=== PATIENT | male | born 1990 | race American Indian/Alaskan Native ===

== ENCOUNTER 2020-11-03 16:41 | Emergency (ER) | payer MEDICAID ==
--- NOTE | 2020-11-03 17:49 | Event Note ---
ED Screening Note Date of service: 11/03/20 Time: 16:50 ED Screening Note: 28-year-old male with a past medical history of schizophrenia presents to the ER requesting mental help and help with room and board. Patient states he is homeless. He states he has been out of his psych medication for about 2 weeks. He denies any SI/HI or hallucinations. He denies any drugs or alcohol use. He also complains of left leg pain. He states that due to him being homeless he does a lot of walking. He denies any swelling to the leg This initial assessment/diagnostic orders/clinical plan/treatment(s) is/are subject to change based on patients health status, clinical progression and re- assessment by fellow clinical providers in the ED. Further treatment and workup at subsequent clinical providers discretion. Patient/guardian urged not to elope from the ED as their condition may be serious if not clinically assessed and managed. Initial orders include: CBC CMP UDS salicylate Acetaminophen level
[2020-11-03 17:53] LABS: Basophils # (Auto) 0.1 K/mm3 (0.0-0.1); Basophils % (Auto) 0.9 % (0.0-1.8); Eosinophils # (Auto) 0.2 K/mm3 (0.0-0.4); Eosinophils % (Auto) 2.7 % (0.0-4.3); Hematocrit 44.1 % (35.5-45.6); Hemoglobin 14.9 gm/dl (11.8-15.2); Lymphocytes # (Auto) 1.9 K/mm3 (1.2-5.4); Lymphocytes % (Auto) 21.4 % (13.4-35.0); Mean Corpuscular HGB Conc 34 % (32-34); Mean Corpuscular Volume 85 fl (84-94); Monocytes # (Auto) 0.5 K/mm3 (0.0-0.8); Monocytes % (Auto) 6.1 % (0.0-7.3); Platelet Count 326 K/mm3 (140-440); Red Blood Count 5.17 M/mm3 (3.65-5.03)
[2020-11-03 18:14] LABS: Alanine Aminotransferase 31 units/L (7-56); BUN/Creatinine Ratio 15; Blood Urea Nitrogen 21 mg/dL (9-20); Calcium 8.8 mg/dL (8.4-10.2); Hemolysis Index 4
--- NOTE | 2020-11-04 01:44 | Emergency Department Report ---
ED General Adult HPI - General Chief complaint: Psych Stated complaint: LEFT LEG PAIN/MH Time Seen by Provider: 11/03/20 16:56 Source: patient Mode of arrival: Ambulatory Limitations: No Limitations - History of Present Illness Initial comments: Chief complaint: "I do not know why I was even called back. Is cold outside. I lost my blanket." HPI: This is a 30-year-old male with history of schizophrenia and homelessness. He stated that it was cold outside. Consequently he wanted referrals to shelters. He denies suicidal homicidal ideation. He denies depression. He desires assistance at room and board. He desires to speak with a social worker masters. He denies auditory visual hallucinations. -: Gradual Severity scale (0 -10): 0 Consistency: constant Improves with: none Worsens with: none Associated Symptoms: denies other symptoms - Related Data Allergies Allergy/AdvReac Type Severity Reaction Status Date / Time No Known Allergies Allergy Verified 11/03/20 16:48 ED Review of Systems ROS: Stated complaint: LEFT LEG PAIN/MH Other details as noted in HPI Comment: All other systems reviewed and negative Constitutional: denies: fever, malaise Respiratory: denies: cough, shortness of breath Gastrointestinal: denies: abdominal pain, nausea, vomiting Psychiatric: denies: anxiety, depression, auditory hallucinations, visual hallucinations, homicidal thoughts, suicidal thoughts ED Past Medical Hx - Past Medical History Previous Medical History?: Yes Hx Psychiatric Treatment: Yes (Schizophrenia) - Surgical History Past Surgical History?: No - Social History Smoking Status: Current Every Day Smoker Substance Use Type: None ED Physical Exam - General Limitations: No Limitations General appearance: alert, in no apparent distress, other (Disheveled poor hygiene) - Head Head exam: Present: atraumatic, normocephalic - Eye Eye exam: Present: normal appearance - ENT ENT exam: Present: mucous membranes moist - Neck Neck exam: Present: normal inspection, full ROM - Respiratory Respiratory exam: Present: normal lung sounds bilaterally. Absent: respiratory distress, wheezes, rales, rhonchi - Cardiovascular Cardiovascular Exam: Present: regular rate, normal rhythm, normal heart sounds. Absent: systolic murmur, diastolic murmur, rubs, gallop - GI/Abdominal GI/Abdominal exam: Present: soft, normal bowel sounds. Absent: distended, tenderness - Rectal Rectal exam: Present: deferred - Extremities Exam Extremities exam: Present: normal inspection - Back Exam Back exam: Present: normal inspection - Neurological Exam Neurological exam: Present: alert, oriented X3 - Psychiatric Psychiatric exam: Present: normal affect, normal mood, other (Pleasant insightful) - Skin Skin exam: Present: warm, dry, intact, normal color. Absent: rash ED Course Vital Signs 11/03/20 16:48 Temperature 98.1 F Pulse Rate 91 H Respiratory 16 Rate Blood Pressure 156/82 [Left] O2 Sat by Pulse 98 Oximetry ED Medical Decision Making - Lab Data Result diagrams: 11/03/20 17:38 11/03/20 17:38 Laboratory Results - last 72 hr 11/03/20 11/03/20 11/03/20 17:38 17:38 17:38 WBC 8.7 RBC 5.17 H Hgb 14.9 Hct 44.1 MCV 85 MCH 29 MCHC 34 RDW 17.0 H Plt Count 326 Lymph % (Auto) 21.4 Person % (Auto) 6.1 Eos % (Auto) 2.7 Baso % (Auto) 0.9 Lymph # (Auto) 1.9 Person # (Auto) 0.5 Eos # (Auto) 0.2 Baso # (Auto) 0.1 Seg Neutrophils % 68.9 Seg Neutrophils # 6.0 Sodium 140 Potassium 4.0 Chloride 102.5 Carbon Dioxide 30 Anion Gap 12 BUN 21 H Creatinine 1.4 H Estimated GFR > 60 BUN/Creatinine Ratio 15 Glucose 105 H Calcium 8.8 Total Bilirubin 0.30 AST 19 ALT 31 Alkaline Phosphatase 114 Total Protein 7.0 Albumin 4.0 Albumin/Globulin Ratio 1.3 Salicylates < 0.3 L Acetaminophen Plasma/Serum Alcohol 11/03/20 11/03/20 17:38 17:38 WBC RBC Hgb Hct MCV MCH MCHC RDW Plt Count Lymph % (Auto) Person % (Auto) Eos % (Auto) Baso % (Auto) Lymph # (Auto) Person # (Auto) Eos # (Auto) Baso # (Auto) Seg Neutrophils % Seg Neutrophils # Sodium Potassium Chloride Carbon Dioxide Anion Gap BUN Creatinine Estimated GFR BUN/Creatinine Ratio Glucose Calcium Total Bilirubin AST ALT Alkaline Phosphatase Total Protein Albumin Albumin/Globulin Ratio Salicylates Acetaminophen 5.0 L Plasma/Serum Alcohol < 0.01 - Medical Decision Making This is a 30-year-old male with history of schizophrenia who presents with request for resources for shelters. He does not have acute condition which needs further stabilization. He is not a harm to himself or others. He is extremely insightful and cooperative. He asked for resources. He asked to speak with social worker masters. He stated that "it is cold outside. That is all." Critical care attestation.: If time is entered above; I have spent that time in minutes in the direct care of this critically ill patient, excluding procedure time. ED Disposition Clinical Impression: Schizophrenia Disposition: DC-01 TO HOME OR SELFCARE Is pt being admited?: No Does the pt Need Aspirin: No Condition: Stable Referrals: [facility] [Outside] - 3-5 Days
[2020-11-04 01:59] VITALS: BP 129/79
== END 2020-11-04 01:59 | disposition home or self-care (01) ==
LOC: ED 16:41
DX: F20.9 Schizophrenia, unspecified (principal); F17.200 Nicotine dependence, unspecified, uncomplicated
CPT/HCPCS: 36415; 80053; 80320; 85025; G0480